=== PATIENT | female | born 1975 | race Caucasian/White ===

== ENCOUNTER → 2017-08-30 | Outpatient (CLI) | payer BC | LOC: COL.RAD 10:07 | DX: K76.0 Fatty (change of) liver, not elsewhere classified (principal); N28.1 Cyst of kidney, acquired ==

== ENCOUNTER → 2017-09-07 | Outpatient (CLI) | payer BC | LOC: COL.RAD 08:07 | DX: K82.8 Other specified diseases of gallbladder (principal) | CPT/HCPCS: A9537 ==